=== PATIENT | female | born 1950 | race Two or more races ===

== ENCOUNTER 2017-07-29 20:25 | Emergency (ER) | payer OTHER ==
[~2017-07-29] VITALS: Ht 170.2 cm; Wt 108.5 kg
[~2017-07-29 20:25] MED LIST: IBUP-232 PO; MEDR4PAK PO; PERC5TAB12 PO
[2017-07-29 20:26] VITALS: BP 140/83; PULSE 80; RESP 18; TEMP 97.9; O2SAT 98
[2017-07-29] MEDS ORDERED: GADODIAMIDE PF 287 MG/ML 20 ML VIAL (for RAD MRI) IV PUSH ONE (20:26)
[2017-07-29] MEDS ORDERED: MORPHINE SULFATE 2 MG/ML INJ IV PUSH ONE (21:30)
[2017-07-29] MEDS ORDERED: ONDANSETRON HCL 4 MG/2 ML VIAL IV PUSH ONE (21:30)
[2017-07-29] MEDS ORDERED: SODIUM CHLORIDE 0.9% FLUSH 10 ML FLUSH IVF PRN (21:30)
--- NOTE | 2017-07-29 21:44 | PD ---
HPI Chief Complaint: Headache Time Seen by Provider: 21:20 Travel History International Travel<30 days: No Contact w/Intl Traveler<30days: No Traveled to known affect area: No History of Present Illness HPI 66-year-old female presents to the emergency department by private transportation of the care of her spouse for complaint of mid upper back pain neck pain and head pain. Patient states she has had symptoms since Tuesday. Patient denies fever chills sweats nausea vomiting sore throat sinus pressure drainage cough congestion shortness of breath abdominal pain or new lower extremity numbness tingling or weakness. Patient states that she has noted worsening tremor of the left upper extremity and mild tremor to the right upper extremity. Patient states she has had intermittent tremor affecting the left upper extremity for several years after being diagnosed and treated for breast cancer with chemotherapy. Patient states since Tuesday symptoms have worsened and are persistent and now she cannot write using her left hand and she is left- handed. Patient states that her pain is moderate to severe and is not improved after recently be seen in the emergency department and treated with ibuprofen, Percocet, and a Medrol Dosepak. Patient is diabetic has history of hypertension dyslipidemia diabetes remote breast cancer with bilateral mastectomy chemotherapy and more recent a left lymph node biopsy May 2017 that was reportedly benign as well as prior cholecystectomy hysterectomy and infusa-port removal. Patient states that approximately 2 weeks ago she did have a near fall but did not land on her back did not injure her neck or her head did not hit her head did not have loss of consciousness was asymptomatic after the fall. Patient states she was not having any symptoms of soreness or muscle spasm and had not noticed any increasing tremor of her left upper extremity after the fall. No bladder or bowel dysfunction, no saddle anesthesia , and no lower extremity numbness tingling or weakness. Patient denies any lower back pain. Patient does not report any history of diabetic neuropathy. No history of peripheral neuropathy. Patient was doing well denies any injury or change in activity or change in medications Tuesday or Tuesday of this week and then suddenly Tuesday started noticing severe head pain neck pain and upper back pain. Patient was reportedly seen in the emergency department a CT brain noncontrast was performed and revealed no acute abnormality. Patient was seen the next day by her primary care provider and no change in medications were provided and no further testing was performed as the provider did not reportedly have access to her CT imaging report. [facility] Past Medical History Narrative Medical Breast cancer status post bilateral mastectomy chemotherapy hypertension dyslipidemia diabetes hysterectomy cholecystectomy; no tobacco use no alcohol use and substance use; nursing notes reviewed Cancer: Yes Cardiovascular Problems: Yes (HTN) Diabetes: Yes (Metformin ) Patient Takes Glucophage: Yes Diminished Hearing: No Hypertension: Yes Immunizations Current: Yes Tetanus Vaccination: > 5 Years Influenza Vaccination: No ?: Not Past Surgical History Cholecystectomy: Yes Hysterectomy: Yes Mastectomy: Yes Social History Alcohol Use: No Tobacco Use: No Substance Use: No Allergies-Medications (Allergen,Severity, Reaction): Coded Allergies: No Known Allergies (Verified Allergy, Unknown, 07/27/17) Reported Meds & Prescriptions Reported Meds & Active Scripts Active Robaxin (Methocarbamol) 750 Mg Tab 750 Mg PO Q6HR Ibuprofen 600 Mg Tab 600 Mg PO Q8HR PRN Percocet (Oxycodone-Acetaminophen) 5-325 mg Tab 1 Tab PO Q4H PRN Medrol Dosepak (Methylprednisolone) 4 Mg Dspk 4 Mg PO DIRECTED Per Pharmacist direction Review of Systems Except as stated in HPI: all other systems reviewed are Neg General / Constitutional: No: Fever, Chills Eyes: No: Diploplia, Blurred Vision HENT: Positive: Headaches, Neck Pain, No: Neck Stiffness Cardiovascular: No: Chest Pain or Discomfort Respiratory: No: Shortness of Breath Gastrointestinal: No: Nausea, Vomiting, Abdominal Pain Genitourinary: No: Urgency, Frequency, Dysuria, Hesitancy, Incontinence, Flank Pain Musculoskeletal: Positive: Myalgias, Arthralgias, Edema (Upper back), Pain Skin: No Rash ( bilateral lower leg ankle and pedal edema) Neurologic: Positive: Coordination Problem (Tremor with pass pointing left upper extremity), Tremor, Headache, No: Weakness, Dizziness, Syncope, Focal Abnormalities, Ataxia, Change in Mentation, Slurred Speech, Paresthesia, Incontinence, Seizures, Sensory Disturbance Psychiatric: Positive: Anxiety Endocrine: No: Heat Intolerance Hematologic/Lymphatic: No: Easy Bruising Physical Exam Narrative GENERAL: Well-developed well-nourished female no acute distress or respiratory distress; GCS 15 SKIN: Warm and dry. HEAD: Atraumatic. Normocephalic. EYES: Pupils equal and round. No scleral icterus. No injection or drainage. ENT: No nasal bleeding or discharge. Mucous membranes pink and moist. NECK: Trachea midline. No JVD. CARDIOVASCULAR: Regular rate and rhythm. RESPIRATORY: No accessory muscle use. Clear to auscultation. Breath sounds equal bilaterally. GASTROINTESTINAL: Abdomen soft, non-tender, nondistended. Hepatic and splenic margins not palpable. MUSCULOSKELETAL: Extremities without clubbing, cyanosis, bilateral lower leg ankle and pedal edema bilaterally. No obvious deformities. diaper machine tender to palpation along the mid scapular thoracic spine no bony step-off no erythema no ecchymosis no abrasion soft tissue swelling induration or increased warmth. NEUROLOGICAL: Awake and alert. No obvious cranial nerve deficits. Motor grossly within normal limits. Five out of 5 muscle strength in the arms and legs. Left upper extremity tremor with pass pointing with finger to nose testing. No lower extremity limb ataxia. No pronator drift. No sensory deficit. No clonus. Normal speech. PSYCHIATRIC: Appropriate mood and affect; insight and judgment normal. Data Data Last Documented VS Vital Signs Date Time Temp Pulse Resp B/P (MAP) Pulse Ox O2 Delivery O2 Flow Rate FiO2 07/29/17 22:12 95 Room Air 07/29/17 20:26 97.9 80 18 Orders Orders Electrocardiogram (07/29/17 21:20) Prothrombin Time / Inr (Pt) (07/29/17 21:20) Act Partial Throm Time (Ptt) (07/29/17 21:20) Complete Blood Count With Diff (07/29/17 21:20) Comprehensive Metabolic Panel (07/29/17 21:20) Troponin I (07/29/17 21:20) Urinalysis - C+S If Indicated (07/29/17 21:20) Chest, Single Ap (07/29/17 21:20) Ecg Monitoring (07/29/17 21:20) Iv Access Insert/Monitor (07/29/17 21:20) Oximetry (07/29/17 21:20) Blood Glucose (07/29/17 21:20) Sodium Chloride 0.9% Flush (Ns Flush) (07/29/17 21:30) Spine, Thoracic-Ap/Lat/Sw(3vw) (07/29/17 ) Ondansetron Inj (Zofran Inj) (07/29/17 21:30) Morphine Inj (Morphine Inj) (07/29/17 21:30) Cta Thor Abd Aorta W Iv C W3d (07/29/17 ) Mri Brain W&W/O Contrast (07/29/17 ) Mra Brain W/O Contrast (Cow) (07/29/17 ) Mra Carotids W Contrast (07/29/17 ) Gadodiamide Pf Inj (Omniscan Pf Inj) (07/29/17 20:26) Morphine Inj (Morphine Inj) (07/30/17 01:30) Ketorolac Inj (Toradol Inj) (07/30/17 02:15) Urine Culture (07/30/17 02:19) Sodium Chlor 0.9% 1000 Ml Inj (Ns 1000 M (07/30/17 03:00) Ed Discharge Order (07/30/17 03:56) Labs Laboratory Tests Test 07/29/17 22:21 07/30/17 02:19 White Blood Count 12.5 TH/MM3 Red Blood Count 5.32 MIL/MM3 Hemoglobin 14.9 GM/DL Hematocrit 44.6 % Mean Corpuscular Volume 83.7 FL Mean Corpuscular Hemoglobin 28.0 PG Mean Corpuscular Hemoglobin Concent 33.5 % Red Cell Distribution Width 14.7 % Platelet Count 228 TH/MM3 Mean Platelet Volume 9.3 FL Neutrophils (%) (Auto) 64.9 % Lymphocytes (%) (Auto) 24.4 % Monocytes (%) (Auto) 9.4 % Eosinophils (%) (Auto) 0.7 % Basophils (%) (Auto) 0.6 % Neutrophils # (Auto) 8.1 TH/MM3 Lymphocytes # (Auto) 3.0 TH/MM3 Monocytes # (Auto) 1.2 TH/MM3 Eosinophils # (Auto) 0.1 TH/MM3 Basophils # (Auto) 0.1 TH/MM3 CBC Comment DIFF FINAL Differential Comment Prothrombin Time 10.7 SEC Prothromb Time International Ratio 1.1 RATIO Activated Partial Thromboplast Time 22.8 SEC Blood Urea Nitrogen 13 MG/DL Creatinine 0.76 MG/DL Random Glucose 97 MG/DL Total Protein 8.2 GM/DL Albumin 3.9 GM/DL Calcium Level 8.9 MG/DL Alkaline Phosphatase 94 U/L Aspartate Amino Transf (AST/SGOT) 34 U/L Alanine Aminotransferase (ALT/SGPT) 29 U/L Total Bilirubin 0.8 MG/DL Sodium Level 138 MEQ/L Potassium Level 3.8 MEQ/L Chloride Level 102 MEQ/L Carbon Dioxide Level 25.5 MEQ/L Anion Gap 11 MEQ/L Estimat Glomerular Filtration Rate 76 ML/MIN Troponin I LESS THAN 0.02 NG/ML Urine Color YELLOW Urine Turbidity CLEAR Urine pH 6.0 Urine Specific [place] GREATER THAN 1.050 Urine Protein TRACE mg/dL Urine Glucose (UA) NEG mg/dL Urine Ketones 10 mg/dL Urine Occult Blood NEG Urine Nitrite NEG Urine Bilirubin NEG Urine Urobilinogen LESS THAN 2.0 MG/DL Urine Leukocyte Esterase NEG Urine RBC 2 /hpf Urine WBC 2 /hpf Urine Squamous Epithelial Cells 2 /hpf Urine Bacteria OCC /hpf Microscopic Urinalysis Comment CATH-CULTURE IND MDM Medical Decision Making Medical Screen Exam Complete: Yes Emergency Medical Condition: Yes Medical Record Reviewed: Yes Interpretation(s) EKG: Normal sinus rhythm rate 75 left axis deviation no acute ST elevation injury pattern or ectopy noted Last Impressions Chest X-Ray 07/29/172119 Signed Impressions: Service Date/Time: Saturday, July 29, 2017 21:34 - CONCLUSION: No acute disease. Alex Villegas MD Thoracic Spine X-Ray 07/29/17 0000 Signed Impressions: Service Date/Time: Saturday, July 29, 2017 21:37 - CONCLUSION: Primary bony degenerative changes involving the mid to lower thoracic spine. Cain Lopez MD CBC & BMP Diagram 07/29/17 22:21 Total Protein 8.2, Albumin 3.9, Calcium Level 8.9, Alkaline Phosphatase 94, Aspartate Amino Transf (AST/SGOT) 34, Alanine Aminotransferase (ALT/SGPT) 29, Total Bilirubin 0.8 Vital Signs Date Time Temp Pulse Resp B/P (MAP) Pulse Ox O2 Delivery O2 Flow Rate FiO2 07/29/17 22:12 95 Room Air 07/29/17 20:26 97.9 80 18 140/83 (102) 98 Room Air Last Impressions Chest X-Ray 07/29/172119 Signed Impressions: Service Date/Time: Saturday, July 29, 2017 21:34 - CONCLUSION: No acute disease. Alex Villegas MD Thoracic Spine X-Ray 07/29/17 0000 Signed Impressions: Service Date/Time: Saturday, July 29, 2017 21:37 - CONCLUSION: Primary bony degenerative changes involving the mid to lower thoracic spine. Cain Lopez MD Neck Magnetic Resonance Angiography 07/29/17 Signed Impressions: Service Date/Time: Sunday, July 30, 2017 00:03 - CONCLUSION: Normal examination for a patient of this age. Alex Villegas MD Head Magnetic Resonance Angiography 07/29/17 Signed Impressions: Service Date/Time: Sunday, July 30, 2017 00:03 - CONCLUSION: Normal examination for a patient of this age. Alex Villegas MD Brain MRI 07/29/17 Signed Impressions: Service Date/Time: Sunday, July 30, 2017 00:03 - CONCLUSION: Normal examination for a patient of this age. Alex Villegas MD Aorta CTA 07/29/17 Signed Impressions: Service Date/Time: Saturday, July 29, 2017 23:48 - CONCLUSION: 1. Negative for thoracic aortic aneurysm or dissection. Mild atherosclerotic plaque. Previous cholecystectomy and breast augmentation. Minimal dependent atelectasis in the lungs. 2. Colonic diverticulosis without diverticulitis. Alex Villegas MD Urinalysis: Specific gravity greater than 1.050 Differential Diagnosis Cephalgia, multiple sclerosis, CVA, malignancy, compression fracture, dissection , aneurysm, SAH; unlikely meningitis or encephalitis Narrative Course Patient placed on cardiac exercise physiologist IV access obtained basic labs and imaging studies ordered concern for this patient having mid thoracic pain for VT aortic dissection aortic aneurysm also concerning for posterior circulation dissection with related CVA also to be of concern for metastatic disease therefore will need MRI and most likely CTA EKG no acute injury pattern changed chest x-ray no acute process in thoracic spine x-ray shows chronic degenerative changes; patient sent for CTA of the thoracic and abdominal aorta in view of possible posterior circulation vasculature dissection CT not possible with CTA of thorax abdomen and pelvis performed therefore MRI of the brain with and without contrast MRA of the brain without contrast and MRA of the cervical spine with contrast to evaluate [place] and cervical vasculature was ordered Imaging studies reveal no acute process patient is aware that she will need to follow-up with neurologist regarding her left upper extremity tremor and is to follow-up with her primary care provider regarding her back pain and headache. Patient is given copies of her imaging reports. Patient encouraged to return the emergency department for any concerns or change in condition. Patient was identified to have very high specific gravity on urinalysis greater than 1.050 and given a normal saline patient also informed that she is not to use any metformin for 72 hours after receiving IV contrast. Patient is stable for outpatient management at this time and pain is under better control patient given prescription for muscle relaxant for musculoskeletal pain. Diagnosis Primary Impression: Cephalgia Qualified Codes: R51 - Headache Additional Impressions: Thoracic myofascial strain Qualified Codes: S29.019D - Strain of muscle and tendon of unspecified wall of thorax, subsequent encounter Tremor of unknown origin Referrals: Neurologist call for appointment Primary Care Physician 3 days Patient Instructions: General Instructions, Narcotic given in the ED Additional Instructions: Continue current medications as presently prescribed May use muscle relaxant as prescribed as needed Follow-up with your primary care provider call office on Tuesday Follow-up with neurologist Return to the emergency room for concerns or change in condition Monitor temperature every 4 hours with thermometer to take acetaminophen as needed for fever 100.4F or greater Return to the emergency department for any concerns or change in condition or development of fever or vomiting Increase fluid hydration Do not take any metformin for 72 hours from time of receiving contrast Med/Other Pt SpecificInfo: Prescription(s) given Scripts Methocarbamol (Robaxin) 750 Mg Tab 750 MG PO Q6HR for Muscle Spasm, #12 TAB 0 Refills Prov: Angela Harris MD 07/30/17 Disposition: 01 DISCHARGE HOME Condition: Stable Angela Harris MD Jul 29, 2017 21:44
--- NOTE | 2017-07-29 21:50 | RADRPT ---
EXAM DATE/TIME: 07/29/2017 21:37 [facility] COMPARISON: No previous studies available for comparison. INDICATIONS : Back pain for 4 days. Patient states she fell 2 weeks ago MEDICAL HISTORY : None. SURGICAL HISTORY : None. ENCOUNTER: Initial ACUITY: 4 - 6 days PAIN SCORE: 10/10 LOCATION: Thoracic spine FINDINGS: There is normal alignment of the thoracic vertebral bodies. Vertebral body height is maintained. No evidence of fracture or subluxation. Pedicles are intact at all levels. The paravertebral reflecti ons are not thickened. There is primary degenerative changes involving the mid to lower thoracic spin e. CONCLUSION: Primary bony degenerative changes involving the mid to lower thoracic spine. Cain Lopez MD on July 29, 2017 at 21:47 Board Certified Radiologist. This report was verified electronically.
[2017-07-29 22:12] VITALS: O2SAT 95
[2017-07-29 22:54] LABS: ALKALINE PHOSPHATASE 94 U/L (45-117); TOTAL BILIRUBIN ADULT 0.8 MG/DL (0.2-1.0); TOTAL PROTEIN 8.2 GM/DL (6.4-8.2); TROPONIN I LESS THAN 0.02 NG/ML (0.02-0.05)
[2017-07-29 22:58] LABS: INTERNATIONAL NORMALIZED RATIO 1.1 RATIO; PROTHROMBIN TIME - PATIENT 10.7 SEC (9.8-11.6)
[2017-07-29 23:05] LABS: AUTOMATED NEUTROPHIL # 8.1 TH/MM3 (1.8-7.7); BASOPHIL # 0.1 TH/MM3 (0-0.2); BASOPHIL % 0.6 % (0.0-2.0); EOSINOPHIL # 0.1 TH/MM3 (0-0.4); EOSINOPHIL % 0.7 % (0.0-4.0); HEMATOCRIT 44.6 % (35.0-46.0); HEMOGLOBIN 14.9 GM/DL (11.6-15.3); LYMPH % 24.4 % (9.0-44.0); MEAN CELL VOLUME 83.7 FL (80.0-100.0); MEAN CORPUSCULAR HGB CONC 33.5 % (32.0-36.0); MEAN PLATELET VOLUME 9.3 FL (7.0-11.0); MONO % 9.4 % (0.0-8.0); MONOCYTE # 1.2 TH/MM3 (0-0.9); NEUT % 64.9 % (16.0-70.0); PLATELET COUNT 228 TH/MM3 (150-450); RED BLOOD COUNT 5.32 MIL/MM3 (4.00-5.30); RED CELL DISTRIBUTION WIDTH 14.7 % (11.6-17.2); WHITE BLOOD COUNT 12.5 TH/MM3 (4.0-11.0)
[2017-07-29 23:06] LABS: ALBUMIN 3.9 GM/DL (3.4-5.0); ALT (GPT) 29 U/L (10-53); AST (GOT) 34 U/L (15-37); BICARBONATE 25.5 MEQ/L (21.0-32.0); BLOOD UREA NITROGEN 13 MG/DL (7-18); CALCIUM 8.9 MG/DL (8.5-10.1); CHLORIDE 102 MEQ/L (98-107); CREATININE 0.76 MG/DL (0.50-1.00); GLOMERULAR FILTRATION RATE 76 ML/MIN (>89); GLUCOSE,RANDOM 97 MG/DL (74-106); SODIUM (NA) 138 MEQ/L (136-145)
--- NOTE | 2017-07-29 23:28 | RADRPT ---
EXAM DATE/TIME: 07/29/2017 21:34 [facility] COMPARISON: No previous studies available for comparison. INDICATIONS : Difficulty breathing for 4 days MEDICAL HISTORY : None. SURGICAL HISTORY : None. ENCOUNTER: Initial ACUITY: 4 - 6 days PAIN SCORE: 0/10 LOCATION: Bilateral chest FINDINGS: A single view of the chest demonstrates the lungs to be symmetrically aerated without evidence of mas s, infiltrate or effusion. The cardiomediastinal contours are unremarkable. Osseous structures are intact. CONCLUSION: No acute disease. Alex Villegas MD on July 29, 2017 at 23:26 Board Certified Radiologist. This report was verified electronically.
[2017-07-29] MEDS ORDERED: IOHEXOL 350 MG/ML 10 ML VIAL (for RAD DIAG) IVCONTRAST ONE (23:48)
--- NOTE | 2017-07-30 00:14 | RADRPT ---
EXAM DATE/TIME: 07/29/2017 23:48 [facility] COMPARISON: No previous studies available for comparison. INDICATIONS : Upper back pain. IV CONTRAST: 100 cc Omnipaque 350 (iohexol) IV RADIATION DOSE: 9.4 CTDIvol (mGy) MEDICAL HISTORY : Carcinoma, breast. Cardiovascular disease Hypertension. SURGICAL HISTORY : Mastectomy, bilateral. ENCOUNTER: Initial ACUITY: 1 day PAIN SCALE: 7/10 LOCATION: Bilateral abdomen TECHNIQUE: Volumetric scanning was performed using a multi-row detector CT scanner. The data was post processed with a variety of visualization algorithms including full volume maximum intensity projection, multi -planar sliding thin slab reformation, curved planar reformation, and surface rendering techniques. Using automated exposure control and adjustment of the mA and/or kV according to patient size, radiat ion dose was kept as low as reasonably achievable to obtain optimal diagnostic quality images. DICOM format image data is available electronically for review and comparison. FINDINGS: LUNGS: There is no consolidation or pneumothorax. No concerning pulmonary nodule is visualized. No pleural fluid is present. MEDIASTINUM: No abnormally enlarged lymph nodes by CT criteria. No axillary or hilar abnormalities are identified. ABDOMEN: The liver and spleen are free of focal defects. Cholecystectomy. The adrenal glands are normal. The k idneys demonstrate no evidence of solid renal mass or hydronephrosis. No free fluid or abdominal mass es are identified. No para-aortic adenopathy is seen. PELVIS: No evidence of free fluid or pelvic mass. No abnormally enlarged inguinal or retroperitoneal lymph no jennifer are present. The bladder is unremarkable. THORACIC AORTA: The thoracic aortic root is normal with normal branching of the great vessels. There is no evidence of aneurysm or dissection. ABDOMINAL AORTA: The aorta is normal in caliber without aneurysm or dissection. The renal arteries are patent bilater ally. The proximal celiac and superior mesenteric arteries are patent and normal in diameter. PELVIC VESSELS: The internal iliac and external iliac vessels are patent without aneurysm or stenosis. CONCLUSION: 1. Negative for thoracic aortic aneurysm or dissection. Mild atherosclerotic plaque. Previous cholecy stectomy and breast augmentation. Minimal dependent atelectasis in the lungs. 2. Colonic diverticulosis without diverticulitis. Alex Villegas MD on July 30, 2017 at 0:08 Board Certified Radiologist. This report was verified electronically.
--- NOTE | 2017-07-30 00:57 | RADRPT ---
EXAM DATE/TIME: 07/30/2017 00:03 [facility] COMPARISON: No previous studies available for comparison. INDICATIONS : Cephalgia. MEDICAL HISTORY : Carcinoma, breast. Diabetes mellitus type 2. Hypertension. SURGICAL HISTORY : Mastectomy, bilateral. Hysterectomy. ENCOUNTER: Initial ACUITY: 2 day PAIN SCORE: 5/10 LOCATION: head Please note a normal MRA of the brain does not entirely exclude the possibility of a small aneurysm, nor the possibility of distal intracranial vessel disease. TECHNIQUE: 3D time of flight MRA was performed. Source images, multiplanar STS MIP, and 3D volume MIP reconstru ctions were reviewed. FINDINGS: There is excellent visualization of the major intracranial arteries out to the second-order branch ve ssels. There is no evidence for aneurysm, vessel truncation or stenosis, and no evidence for vascula r malformation. CONCLUSION: Normal examination for a patient of this age. Alex Villegas MD on July 30, 2017 at 0:51 Board Certified Radiologist. This report was verified electronically.
--- NOTE | 2017-07-30 01:05 | RADRPT ---
EXAM DATE/TIME: 07/30/2017 00:03 [facility] COMPARISON: No previous studies available for comparison. INDICATIONS : Cephalgia. History of breast ca. CONTRAST: 20 cc Omniscan (gadodiamide) IV MEDICAL HISTORY : Carcinoma, breast. Hypertension. Diabetes mellitus type 2. SURGICAL HISTORY : Mastectomy, bilateral. Hysterectomy. ENCOUNTER: Initial ACUITY: 2 day PAIN SCORE: 5/10 LOCATION: head TECHNIQUE: Multiplanar, multisequence MRI of the brain was performed both prior to and following the administrat ion of paramagnetic contrast. FINDINGS: CEREBRUM: The ventricles are normal for age. No evidence of midline shift, mass lesion, hemorrhage or acute in farction. No extraaxial fluid collections are seen. The pituitary gland and suprasellar cistern are normal in configuration. WHITE MATTER: No significant signal abnormalities are seen in the white matter. POSTERIOR FOSSA: The cerebellum and brainstem are intact. The 4th ventricle is midline. The cerebellopontine angle is unremarkable. The cerebellar tonsils are normal in position. DIFFUSION IMAGING: No focal areas of restricted diffusion are seen. No evidence of acute infarction. EXTRACRANIAL: The visualized portions of the orbits and paranasal sinuses are unremarkable. POST-CONTRAST: No abnormal areas of parenchymal or dural enhancement. No evidence of blood-brain barrier breakdown. CONCLUSION: Normal examination for a patient of this age. Alex Villegas MD on July 30, 2017 at 0:56 Board Certified Radiologist. This report was verified electronically.
[2017-07-30] MEDS ORDERED: MORPHINE SULFATE 2 MG/ML INJ IV PUSH ONE (01:30)
--- NOTE | 2017-07-30 01:48 | RADRPT ---
EXAM DATE/TIME: 07/30/2017 00:03 [facility] COMPARISON: No previous studies available for comparison. INDICATIONS : Dissection. CONTRAST: 20 cc Omniscan (gadodiamide) IV MEDICAL HISTORY : Carcinoma, breast. Diabetes mellitus type 2. Hypertension. SURGICAL HISTORY : Mastectomy, bilateral. Hysterectomy. ENCOUNTER: Initial ACUITY: 2 day PAIN SCORE: 0/10 LOCATION: neck Percent stenosis is calculated using the diameter of the stenotic region over the diameter of the nor mal distal internal carotid artery. TECHNIQUE: Bolus infused MRA of the extracranial circulation was performed using a neurovascular coil. Post pro cessing was performed including rotating subvolume maximum intensity projections of each carotid hardy ry, rotating full volume maximum intensity projections of both carotid arteries, sagittal and coronal sliding thin slab reformations of each carotid artery, and left oblique sliding thin slab reformatio n through the aortic arch to include the origin of the arch branch vessels. FINDINGS: AORTIC ARCH: There is a three vessel origin of the great vessels from the aorta. No evidence of ostial narrowing. RIGHT CAROTID: The common carotid artery is intact. The carotid bulb has a normal configuration without ulceration or narrowing. The internal carotid artery lumen is smooth without stenosis. The external carotid ar fiordaliza is intact. LEFT CAROTID: The common carotid artery is intact. The carotid bulb has a normal configuration without ulceration or narrowing. The internal carotid artery lumen is smooth without stenosis. The external carotid ar fiordaliza is intact. VERTEBRALS: The vertebral arteries have a symmetric diameter. No stenotic lesions are seen. CONCLUSION: Normal examination for a patient of this age. Alex Villegas MD on July 30, 2017 at 1:44 Board Certified Radiologist. This report was verified electronically.
[2017-07-30] MEDS ORDERED: KETOROLAC TROMETHAMINE 30 MG/ML (IVP) VIAL IV PUSH ONE (02:15)
[2017-07-30 02:46] LABS: BACTERIA, URINE OCC /hpf; BILIRUBIN, URINE NEG (NEG); BLOOD, URINE NEG (NEG); GLUCOSE,URINE NEG (NEG); KETONE, URINE 10 mg/dL (NEG); NITRITE,URINE NEG (NEG); SQUAMOUS EPITHELIAL CELL URINE 2 /hpf (0-5); URINE COLOR YELLOW (YELLW/STRAW); URINE LEUKOCYTE ESTERASE NEG (NEG)
[2017-07-30] MEDS ORDERED: ROBA750T PO (03:00)
[2017-07-30] MEDS ORDERED: SODIUM CHLOR 0.9% 1000 ML INJ 1,000 ML IV ONE (03:00)
--- NOTE | 2017-07-30 23:43 | EKG ---
Date Performed: 07/29/2017 Time Performed: 22:09:41 PTAGE: 66 years EKG: Sinus rhythm MARKED LEFT AXIS DEVIATION ABNORMAL ECG NO PREVIOUS TRACING DOCTOR: Henri Mc Interpretating Date/Time 07/30/2017 23:41:59
== END 2017-07-30 04:30 | disposition home or self-care (01) ==
LOC: NEPC 20:25
DX: R51 Headache (principal); S29.012A Strain of muscle and tendon of back wall of thorax, initial encounter; R25.1 Tremor, unspecified; R94.31 Abnormal electrocardiogram [ECG] [EKG]; E11.9 Type 2 diabetes mellitus without complications; E78.5 Hyperlipidemia, unspecified; I10 Essential (primary) hypertension; M54.9 Dorsalgia, unspecified; R60.0 Localized edema
CPT/HCPCS: 70544; 70548; 70553; 71045; 71275; 72072; 74174; 80053; 81001; 84484; 85025; 85610; 85730; 87086; 93005; 96361; 96374; 96375; 96376; 99285; A9579; J1885; J2270; J2405; J7030; Q9967